=== PATIENT | male | born 1980 | race Caucasian/White ===

== ENCOUNTER 2018-09-16 12:20 | Emergency (ER) | payer OTHER ==
[~2018-09-16] VITALS: Ht 172.7 cm; Wt 76.8 kg
[2018-09-16 12:28] VITALS: BP 134/82
== END 2018-09-16 12:56 | disposition home or self-care (01) ==
LOC: EMS 12:20
DX: R45.851 Suicidal ideations (principal); R06.02 Shortness of breath; R51 Headache; F17.200 Nicotine dependence, unspecified, uncomplicated